=== PATIENT | male | born 1975 | race Caucasian/White ===

== ENCOUNTER → 2018-02-25 | Outpatient (CLI) | payer OTHER | LOC: FIMAGING 09:12 | PROVIDERS: ATTEND Family Medicine | DX: M25.552 Pain in left hip (principal) ==

== ENCOUNTER → 2018-02-25 | Outpatient (CLI) | payer OTHER ==
[~2018-02-25] MED LIST: LIDOCAINE 1% 300 MG/30 ML SDV ONE
== END ==
LOC: FIMAGING 14:39
PROVIDERS: ATTEND Family Medicine
DX: S70.12XA Contusion of left thigh, initial encounter (principal)

== ENCOUNTER → 2018-02-27 | Day surgery (SDC) | payer OTHER ==
[~2018-02-27] MED LIST changes: +ETHYL ALCOHOL 98% 5 ML AMP MISC ONE; -LIDOCAINE 1% 300 MG/30 ML SDV ONE
== END | disposition home or self-care (01) ==
LOC: FIMAGING 16:29
PROVIDERS: ATTEND Radiology Diagnostic Radiology
PROC: 3E033TZ Introduction of Destructive Agent into Peripheral Vein, Percutaneous Approach (ICD-10-PCS; principal; 2018-02-27)
PROC: B54CZZA Ultrasonography of Left Lower Extremity Veins, Guidance (ICD-10-PCS; principal; 2018-02-27)
PROC: 0J9M30Z Drainage of Left Upper Leg Subcutaneous Tissue and Fascia with Drainage Device, Percutaneous Approach (ICD-10-PCS; principal; 2018-02-27)
DX: S70.12XA Contusion of left thigh, initial encounter (principal); V19.3XXA Pedal cyclist (driver) (passenger) injured in unspecified nontraffic accident, initial encounter; Y93.55 Activity, bike riding

== ENCOUNTER → 2018-03-07 | Day surgery (SDC) | payer OTHER ==
[~2018-03-07] MED LIST changes: +GADOBUTROL 10 ML VIAL IVP ONE; +IOPAMIDOL (ISOVUE-300) 100 ML BTL ONE; +LIDOCAINE 1% 2 ML INJ ONE; +LIDOCAINE 1% 300 MG/30 ML SDV ONE
== END | disposition home or self-care (01) ==
LOC: FIMAGING 07:33
PROVIDERS: ATTEND Radiology Diagnostic Radiology
PROC: B54CZZA Ultrasonography of Left Lower Extremity Veins, Guidance (ICD-10-PCS; principal; 2018-03-07)
PROC: 3E033TZ Introduction of Destructive Agent into Peripheral Vein, Percutaneous Approach (ICD-10-PCS; principal; 2018-03-07)
DX: S70.12XA Contusion of left thigh, initial encounter (principal); V19.3XXA Pedal cyclist (driver) (passenger) injured in unspecified nontraffic accident, initial encounter; Y93.55 Activity, bike riding
CPT/HCPCS: A9585; Q9967

== ENCOUNTER 2018-03-09 11:01 | Observation (INO) | payer OTHER ==
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
[2018-03-09 11:45] LABS: PLATELET COUNT 221 10^3/uL (150-400)
[2018-03-09] MEDS ORDERED: ceFAZolin 2 GM in NS 100 ML IV ONE (12:28)
[2018-03-09] MEDS ORDERED: ONDANSETRON 4 MG/2 ML VIAL IVP PRN (13:37)
[2018-03-09] MEDS ORDERED: KETOROLAC 15 MG/1 ML SDV IVP SCH (13:45)
[2018-03-09] MEDS ORDERED: KETOROLAC 15 MG/1 ML SDV ONE (13:53)
[2018-03-09] MEDS ORDERED: ONDANSETRON 4 MG/2 ML VIAL ONE (13:54)
[2018-03-09] MEDS ORDERED: IBUPROFEN 600 MG TAB PO PRN (13:55)
[2018-03-09] MEDS ORDERED: KETOROLAC 15 MG/1 ML SDV IVP PRN (13:56)
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
--- NOTE | 2018-03-09 15:52 | GHP ---
[f rep st] HISTORY AND PHYSICAL DATE OF ADMISSION: 03/09/2018 CHIEF COMPLAINT: Cellulitis, left thigh. HISTORY OF PRESENT ILLNESS: Cristóbal is a 43-year-old active male who sustained a traumatic hematoma to the left thigh about 4 weeks ago. He aspirated in the office and then ultimately had an ultrasound performed which showed a Paige- Ericka lesion. The initial ultrasound showed it measuring more than 15 cm in size from the greater trochanter to the mid left thigh laterally. He was then evaluated and had sclerosis performed on February 27, as well as March 07. On March 07, when they injected, they were not able to pull it back. He went back later and had the drain exchanged. He noticed increased pain yesterday and then today noticed some new cellulitis. He has associated malaise. PAST MEDICAL HISTORY: None. PAST SURGICAL HISTORY: 1. Left ACL repair. 2. Vasectomy. 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 He does not use tobacco products. REVIEW OF SYSTEMS: A 10-point review of systems negative except per HPI. FAMILY HISTORY: Noncontributory. PHYSICAL EXAMINATION: VITAL SIGNS: 36.5, 83, 124/83, 12, 97% on room air. GENERAL: Pleasant, well-nourished, well-groomed man. HEENT: Normocephalic. No gross hearing deficits. Mucous membranes moist. Pupils equal and round. No scleral icterus. LUNGS: Clear to auscultation bilaterally. No increased work of breathing. CARDIAC: Regular rate. EXTREMITIES: No distal peripheral edema. He does have swelling of the left thigh. SKIN: He has erythema and edema on the upper thigh, pelvic region. The drain exits on the left lower thigh. There is some necrotic fat in the drain and some cloudy material within the tubing and in the drain itself, appears to be serosanguineous fluid. The left thigh is slightly more edematous than the right. He has minimal pain to palpation. MUSCULOSKELETAL: Normal nails. PSYCH: Mood and affect normal. NEURO: Grossly intact. LAB RESULTS: I personally reviewed the results of his MRI. I have also discussed the findings with Dr. Willie Valdes and Dr. Jacqueline Scott. IMPRESSION AND PLAN: Cristóbal Bai is a 43-year-old man with a Paige-Lavall?e lesion, status post sclerosis and drainage. He now has cellulitis. I have admitted him for IV antibiotics. I have consulted Dr. Jacqueline Scott to assist with antibiotic choice, route, and duration. He can continue the drainage. The MRI did not show an undrained fluid collection and his drainage has been decreasing to approximately 20 cc per day as compared to greater than 100 previously. IV abx. If no improvement, may need operative intervention such as washout with wound VAC placement. He had his questions answered to his satisfaction. /[id number]/MODL MTDD
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
[2018-03-09] MEDS: ceFAZolin 2 GM/DEXTROSE 100 ML IV SCH ×2 (17:35→21:18)
[2018-03-09] MEDS ORDERED: ceFAZolin 2 GM/DEXTROSE 100 ML IV SCH (20:00)
[2018-03-10 05:18] LABS: PLATELET COUNT 207 10^3/uL (150-400)
[2018-03-10] MEDS: ceFAZolin 2 GM/DEXTROSE 100 ML IV SCH (05:39)
[2018-03-10 09:23] VITALS: BP 113/75
--- NOTE | 2018-03-10 10:29 | SOAPPROG ---
SOAP Progress Note Assessment/Plan: Assessment: 43 yo with moreelías aletha lesion and cellulitus Plan for outpatient ceftriaxone continue drain Consider changing drain and exchange S: feeling better, less induration O: Sitting in bed, appears well no increased work of breathing regular rate Less induration and erythema on thigh drain with serosanguinous fluid Plan: 03/10/18 10:26 Objective: Vital Signs Temp Pulse Resp BP Pulse Ox 36.9 C 74 14 113/75 93 03/10/18 08:00 03/10/18 08:00 03/10/18 08:00 03/10/18 08:00 03/10/18 08:00 Laboratory Results 03/10/18 05:09 03/09/18 03/10/18 03/11/18 05:59 05:59 05:59 Intake Total 200 Output Total 25 30 Balance 175 -30 ICD10 Worksheet Patient Problems: Problems Problem Status Onset Cellulitis of left leg Acute
--- NOTE | 2018-03-10 10:43 | PCMIDPN ---
Assessment/Plan: # Left thigh cellulitis, 30 to 45% improved today on IV Ancef suggestive of Streptococcus versus MSSA. Also marked improvement in WBC count. --Will plan on ceftriaxone 2gm IV through 03/13/2018 in the infusion center via peripheral IV --exchange drain 03/13 and I will re-examine his leg at that time Micro Blood cx (2) NGTD Subjective: Patient states that he is feeling much better today. No side effects antibiotics as of yet Objective: Vital Signs Temp Pulse Resp BP Pulse Ox 36.9 C 74 14 113/75 93 03/10/18 08:00 03/10/18 08:00 03/10/18 08:00 03/10/18 08:00 03/10/18 08:00 Laboratory Results 03/10/18 05:09 03/09/18 03/10/18 03/11/18 05:59 05:59 05:59 Intake Total 200 Output Total 25 30 Balance 175 -30 General: Well-appearing male no acute distress Resp: Breathing easy Left thigh erythema more dull in nature, similar distribution (anterior thigh into inguinal region, small area on gluteus, 1/3 of upper thigh), erythema around insertion site of drain almost resolved; generally less warm. Minimal tenderness. - Time Spent With Patient Time Spent with Patient: greater than 25 minutes (Care coordinated with Dr. Shanice Troy) Time Spent with Patient: Greater than 25 minutes spent on this patients care, greater than 50% of time spent counseling, educating, and coordinating care regarding the above mentioned plan. ICD10 Worksheet Patient Problems: Problems Problem Status Onset Cellulitis of left leg Acute
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
--- NOTE | 2018-03-10 11:47 | ASMTLACE ---
LACE Length of stay for Answers: 1 day current admission Acuity / Level of Answers: Yes Care: Did the patient have an inpatient admission? # of Emergency department Answers: 1-2 visits in the last 6 months Score: 5 Date Signed: 03/10/2018 11:47 AM Electronically Signed By:Linda Gutierrez LCSW
--- NOTE | 2018-03-10 19:50 | GDS ---
[f rep st] DISCHARGE SUMMARY Date of admission: 03/09/2018 Date of discharge: 03/10/2018 Consultants: Dr. Jacqueline Scott REASON FOR ADMISSION: Cellulitis. OTHER PERTINENT DIAGNOSIS: None HISTORY OF PRESENT ILLNESS: The patient is a 43-year-old man with a Paige- Orlin lesion of the left thigh. He has had this sclerosed. The drain was sclerosed and exchanged last week. He then developed cellulitis. Hospital Course: He underwent MRI which showed mild cellulitis along the lateral aspect of the left mid to proximal thigh extending along the anterior lateral aspect of the left hip. Good position of the drainage catheter. No reaccumulation of fluid. He was placed on antibiotics. Blood cultures pending , he improved dramatically with IV antibiotics. CONDITIONS ON DISCHARGE: 1. Will have IV antibiotics for a short course. 2. Will follow up with Dr. Jimenez to exchange drain later this week. Dr. Scott will see him at that visit. He will follow up with Dr. Troy as needed. /[id number]/MODL MTDD
== END 2018-03-10 11:51 | disposition home or self-care (01) ==
LOC: INTOOBSV 13:29 → F3E 14:05
PROVIDERS: ADMIT Surgery; ATTEND Surgery
DX: L03.116 Cellulitis of left lower limb (principal); S70.12XD Contusion of left thigh, subsequent encounter; V19.3XXD Pedal cyclist (driver) (passenger) injured in unspecified nontraffic accident, subsequent encounter
CPT/HCPCS: 73720; G0378; J0690; J0696; J1885; J2405

== ENCOUNTER → 2018-03-13 | Day surgery (SDC) | payer OTHER ==
[~2018-03-13] MED LIST changes: -ETHYL ALCOHOL 98% 5 ML AMP MISC ONE; -GADOBUTROL 10 ML VIAL IVP ONE; -IOPAMIDOL (ISOVUE-300) 100 ML BTL ONE; +IOPAMIDOL (ISOVUE-300) 150 ML BTL ONE; -LIDOCAINE 1% 2 ML INJ ONE; -LIDOCAINE 1% 300 MG/30 ML SDV ONE
== END | disposition home or self-care (01) ==
LOC: FIMAGING 15:50
PROVIDERS: ATTEND Radiology Diagnostic Radiology
PROC: B54CZZA Ultrasonography of Left Lower Extremity Veins, Guidance (ICD-10-PCS; principal; 2018-03-13)
PROC: 0J9P3ZZ Drainage of Left Lower Leg Subcutaneous Tissue and Fascia, Percutaneous Approach (ICD-10-PCS; principal; 2018-03-13)
PROC: 3E033TZ Introduction of Destructive Agent into Peripheral Vein, Percutaneous Approach (ICD-10-PCS; principal; 2018-03-13)
DX: S70.12XD Contusion of left thigh, subsequent encounter (principal); V19.3XXD Pedal cyclist (driver) (passenger) injured in unspecified nontraffic accident, subsequent encounter; Y93.55 Activity, bike riding
CPT/HCPCS: Q9967

== ENCOUNTER → 2018-03-14 | Outpatient (CLI) | payer OTHER | LOC: FIMAGING 16:22 | PROVIDERS: ATTEND Radiology Diagnostic Radiology | DX: L02.416 Cutaneous abscess of left lower limb (principal) ==

== ENCOUNTER → 2018-03-27 | Day surgery (SDC) | payer OTHER | END | disposition home or self-care (01) | LOC: FIMAGING 16:46 | PROVIDERS: ATTEND Radiology Diagnostic Radiology | PROC: 0J9P30Z Drainage of Left Lower Leg Subcutaneous Tissue and Fascia with Drainage Device, Percutaneous Approach (ICD-10-PCS; principal; 2018-03-27) | PROC: 0JP Subcutaneous Tissue and Fascia, Removal (ICD-10-PCS; principal; 2018-03-27) | DX: L02.416 Cutaneous abscess of left lower limb (principal) ==

== ENCOUNTER → 2018-04-22 | Outpatient (CLI) | payer OTHER | LOC: FIMAGING 10:01 | PROVIDERS: ATTEND Physician Assistant Medical | DX: S69.91XA Unspecified injury of right wrist, hand and finger(s), initial encounter (principal) ==

== ENCOUNTER → 2018-05-11 | Outpatient (CLI) | payer OTHER | LOC: FIMAGING 08:50 | PROVIDERS: ATTEND Physician Assistant | DX: S53.31XA Traumatic rupture of right ulnar collateral ligament, initial encounter (principal) ==

== ENCOUNTER 2018-05-21 05:58 | Day surgery (SDC) | payer OTHER ==
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
[2018-05-21] MEDS ORDERED: ceFAZolin 2 GM/DEXTROSE 100 ML IV ONE (06:04)
[2018-05-21] MEDS ORDERED: LIDOCAINE 1% 2 ML INJ ID PRN (06:05)
[2018-05-21] MEDS ORDERED: LR 1,000 ML IV ONE (06:05)
[2018-05-21] MEDS ORDERED: PROPOFOL/EMULSION 500 MG/50 ML BOTTLE IV ONE (06:48)
[2018-05-21] MEDS ORDERED: POLYMYXIN B SULFATE 500,000 UNIT/10 ML SYR IRR ONE (06:48)
[2018-05-21] MEDS ORDERED: BUPIVACAINE/EPI 0.5% 30 ML SDV ONE (06:48)
[2018-05-21] MEDS ORDERED: fentaNYL 100 MCG/2 ML INJ ONE (06:49)
[2018-05-21] MEDS ORDERED: MIDAZOLAM 2 MG/2 ML VIAL IVP ONE (07:05)
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
--- NOTE | 2018-05-21 07:16 | PDHPUP ---
History & Physical Update H&P update statement: This history and physical update is based on an assessment of the patient which was completed after admission or registration (within 24 hours), but prior to the surgery/procedure. H&P update: H&P reviewed & patient examined, no change in patient's condition since H&P completed, changes noted
[2018-05-21] MEDS ORDERED: LR 500 ML IV PRN (07:50)
[2018-05-21] MEDS ORDERED: ALBUTEROL 3 ML DEYVIAL IH PRN (07:50)
[2018-05-21] MEDS ORDERED: HYDROCODONE/APAP 5/325 TAB PO PRN (07:50)
[2018-05-21] MEDS ORDERED: ACETAMINOPHEN 500 MG TAB PO PRN (07:50)
[2018-05-21] MEDS ORDERED: oxyCODONE IR 5 MG TAB PO PRN (07:50)
[2018-05-21] MEDS ORDERED: NALOXONE HCL 0.4 MG/ML INJ IVP PRN (07:50)
[2018-05-21] MEDS ORDERED: DEXAMETHASONE 4 MG/ML VIAL IVP PRN (07:50)
[2018-05-21] MEDS ORDERED: fentaNYL 100 MCG/2 ML INJ IVP PRN (07:50)
[2018-05-21] MEDS ORDERED: MEPERIDINE 25 MG/0.5 ML AMP IVP PRN (07:50)
[2018-05-21] MEDS ORDERED: ONDANSETRON 4 MG/2 ML VIAL IVP PRN (07:50)
--- NOTE | 2018-05-21 08:28 | POSTANESTH ---
Post Anesthetic Evaluation Cardiovascular Status: Normal, Stable Respiratory Status: Normal, Stable Level of Consciousness/Mental Status: Can Participate in Eval Pain Control: Adequate, Prn Tx Ordered Nausea/Vomiting Control: Adequate, Prn Tx Ordered Complications Possibly Related to Anesthesia: None Noted
--- NOTE | 2018-05-21 08:45 | POSTOPPROG ---
Post Op Note Date of Operation: 05/21/18 Surgeon: Parveen Cortez Anesthesiologist: Preeti Anesthesia: Other (Specify) ([place] Block with MAC) Pre-op Diagnosis: R THumb UCL tear at MPJ Post-op Diagnosis: Same Procedure: Repair R THumb MPJ UCL (Skiers Thumb Repair) Findings: Arthrex mini pushlock anchor Inf/Abcess present in the surg proc area at time of surgery?: No EBL: Minimal Complications: None
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
[2018-05-21 09:46] VITALS: BP 123/88
== END 2018-05-21 09:42 | disposition home or self-care (01) ==
LOC: FSGY 05:58
PROVIDERS: ATTEND Orthopaedic Surgery Hand Surgery
PROC: 0MS Bursae and Ligaments, Reposition (ICD-10-PCS; principal; 2018-05-21 07:15)
DX: S53.31XA Traumatic rupture of right ulnar collateral ligament, initial encounter (principal); V19.3XXA Pedal cyclist (driver) (passenger) injured in unspecified nontraffic accident, initial encounter; Y93.55 Activity, bike riding
CPT/HCPCS: C1713; J0690; J2250; J2704; J3010